=== PATIENT | male | born 1960 | race African-American/Black ===

== ENCOUNTER 2021-03-13 15:52 | Inpatient (IN) | payer OTHER ==
[2021-03-13 17:39] VITALS: BMI 21.6
[2021-03-13] MEDS ORDERED: cloNIDine HCL 0.1 MG TABLET PO PRN (18:01)
[2021-03-13] MEDS ORDERED: METHOCARBAMOL 500 MG TABLET PO PRN (18:01)
[2021-03-13] MEDS ORDERED: IBUPROFEN 400 MG TABLET (FP) PO PRN (18:01)
[2021-03-13] MEDS ORDERED: METHADONE HCL 10 MG TABLET (FOR DETOX USE ONLY) PO ONE (18:01)
[2021-03-13] MEDS ORDERED: BISMUTH SUBSALICYLATE 524 MG/30 ML PO PRN (18:01)
[2021-03-13] MEDS ORDERED: MAGNESIUM CITRATE 300 ML BOTTLE PO PRN (18:01)
[2021-03-13] MEDS ORDERED: ONDANSETRON *ODT* 4 MG TABLET SL PRN (18:01)
[2021-03-13] MEDS ORDERED: MAGNESIUM HYDROX 2400MG/30ML ORAL SUSPENSION 30 ML CUP PO PRN (18:01)
[2021-03-13] MEDS ORDERED: NICOTINE POLACRILEX 2 MG GUM BUC PRN (18:01)
[2021-03-13] MEDS ORDERED: ACETAMINOPHEN 325 MG TABLET (FP) PO PRN (18:01)
[2021-03-13] MEDS ORDERED: MAG HYDROX/AL HYDROX/SIMETH 30 ML UNIT-DOSE CUP PO PRN (18:01)
[2021-03-13] MEDS ORDERED: MENTHOL/PHENOL 1 EACH UD MM PRN (18:01)
[2021-03-13] MEDS: THIAMINE HCL 100 MG TABLET (FP) PO SCH (23:02)
[2021-03-13] MEDS: MELATONIN 5 MG TABLETS PO SCH (23:02)
[2021-03-14] MEDS ORDERED: METHADONE HCL 10 MG TABLET (FOR DETOX USE ONLY) ONE (09:47)
[2021-03-14] MEDS ORDERED: METHADONE HCL 5 MG TABLET (FOR DETOX USE ONLY) ONE (09:47)
[2021-03-14 09:54] LABS: HEMATOCRIT 30.3 % (35.4-49); HEMOGLOBIN 10.1 GM/dL (11.7-16.9); MCH 31.6 pg (25.7-33.7); MCHC 33.2 g/dl (32.0-35.9); MEAN CELL VOLUME 94.9 fl (80-96); MEAN PLT VOLUME 8.6 fl (7.5-11.1); PLATELET COUNT 177 K/MM3 (134-434); RBC 3.19 M/mm3 (4.00-5.60); RDW 14.1 % (11.9-15.9); WHITE BLOOD COUNT 9.4 K/mm3 (4.0-10.0)
[2021-03-14] MEDS ORDERED: METHADONE (DETOX) 20 MG, METHADONE (DETOX) 5 MG PO ONE (10:00)
[2021-03-14 10:03] LABS: CALCIUM 9.3 mg/dL (8.5-10.1)
[2021-03-14 10:04] LABS: ALBUMIN 2.4 g/dl (3.4-5.0); BLOOD UREA NITROGEN 12.7 mg/dL (7-18)
[2021-03-14 10:06] LABS: CREATININE 0.9 mg/dL (0.55-1.3)
[2021-03-14 10:08] LABS: BILIRUBIN,TOTAL 0.4 mg/dL (0.2-1); TOT PROT 6.8 g/dl (6.4-8.2)
[2021-03-14] MEDS: NICOTINE 14 MG/24 HOURS TOPICAL PATCH TD SCH (10:10)
[2021-03-14] MEDS: PRENATAL VITAMINS W/ FOLIC ACID TABLET (FP) PO SCH (10:10)
[2021-03-14] MEDS ORDERED: APIXABAN 5 MG TABLET PO SCH (11:30)
[2021-03-14] MEDS: APIXABAN 5 MG TABLET PO SCH ×2 (14:52→22:28)
[2021-03-14] MEDS: ACETAMINOPHEN 325 MG TABLET (FP) PO PRN (14:56)
[2021-03-14] MEDS: THIAMINE HCL 100 MG TABLET (FP) PO SCH (22:26)
[2021-03-14] MEDS: MELATONIN 5 MG TABLETS PO SCH (22:26)
[2021-03-14] MEDS: QUEtiapine FUMARATE 100 MG TABLET (FP) PO SCH (22:28)
[2021-03-15] MEDS ORDERED: ALBUTEROL SO4 2.5/IPRATROPIUM 0.5 INH SOL 3 ML VIAL.NEB. NEB PRN (09:52)
[2021-03-15] MEDS ORDERED: SODIUM CHLORIDE NASAL SPRAY 44 ML BOTTLE NS PRN (09:53)
[2021-03-15] MEDS ORDERED: P-EPHED 60MG/TRIPROLIDI 2.5MG TABLET PO PRN (09:53)
[2021-03-15] MEDS: APIXABAN 5 MG TABLET PO SCH ×2 (09:59→22:17)
[2021-03-15] MEDS: PRENATAL VITAMINS W/ FOLIC ACID TABLET (FP) PO SCH (09:59)
[2021-03-15] MEDS ORDERED: METHADONE HCL 10 MG TABLET (FOR DETOX USE ONLY) PO ONE (10:00)
[2021-03-15] MEDS ORDERED: ALBUTEROL SO4 2.5/IPRATROPIUM 0.5 INH SOL 3 ML VIAL.NEB. NEB ONE (10:00)
[2021-03-15] MEDS: NICOTINE 14 MG/24 HOURS TOPICAL PATCH TD SCH (10:02)
[2021-03-15] MEDS: guaiFENesin 600 MG TABLET.ER (FP) PO SCH ×2 (12:50→22:17)
[2021-03-15] MEDS: METHYL SALICYLATE/MENTHOL OINT 30 GM TUBE TP SCH ×2 (12:50→22:17)
[2021-03-15] MEDS: MELATONIN 5 MG TABLETS PO SCH (22:16)
[2021-03-15] MEDS: QUEtiapine FUMARATE 100 MG TABLET (FP) PO SCH (22:17)
[2021-03-15] MEDS: THIAMINE HCL 100 MG TABLET (FP) PO SCH (22:17)
[2021-03-16] MEDS ORDERED: METHADONE HCL 10 MG TABLET (FOR DETOX USE ONLY) ONE (09:22)
[2021-03-16] MEDS ORDERED: METHADONE HCL 5 MG TABLET (FOR DETOX USE ONLY) ONE (09:22)
[2021-03-16] MEDS ORDERED: METHADONE (DETOX) 10 MG, METHADONE (DETOX) 5 MG PO ONE (10:00)
[2021-03-16] MEDS: guaiFENesin 600 MG TABLET.ER (FP) PO SCH ×2 (10:46→22:48)
[2021-03-16] MEDS: METHYL SALICYLATE/MENTHOL OINT 30 GM TUBE TP SCH ×2 (10:46→22:48)
[2021-03-16] MEDS: APIXABAN 5 MG TABLET PO SCH ×2 (10:46→22:48)
[2021-03-16] MEDS: PRENATAL VITAMINS W/ FOLIC ACID TABLET (FP) PO SCH (10:46)
[2021-03-16] MEDS: NICOTINE 14 MG/24 HOURS TOPICAL PATCH TD SCH (10:50)
[2021-03-16] MEDS: QUEtiapine FUMARATE 100 MG TABLET (FP) PO SCH (22:48)
[2021-03-16] MEDS: MELATONIN 5 MG TABLETS PO SCH (22:48)
[2021-03-16] MEDS: THIAMINE HCL 100 MG TABLET (FP) PO SCH (22:48)
[2021-03-17] MEDS ORDERED: METHADONE HCL 10 MG TABLET (FOR DETOX USE ONLY) PO ONE (10:00)
[2021-03-17] MEDS: NICOTINE 14 MG/24 HOURS TOPICAL PATCH TD SCH (10:07)
[2021-03-17] MEDS: APIXABAN 5 MG TABLET PO SCH ×2 (10:07→21:35)
[2021-03-17] MEDS: PRENATAL VITAMINS W/ FOLIC ACID TABLET (FP) PO SCH (10:07)
[2021-03-17] MEDS: METHYL SALICYLATE/MENTHOL OINT 30 GM TUBE TP SCH ×2 (10:07→21:35)
[2021-03-17] MEDS: guaiFENesin 600 MG TABLET.ER (FP) PO SCH ×2 (10:07→21:35)
[2021-03-17] MEDS: LIDOCAINE 5% TOPICAL PATCH TP SCH (11:53)
[2021-03-17] MEDS: QUEtiapine FUMARATE 100 MG TABLET (FP) PO SCH (21:35)
[2021-03-17] MEDS: MELATONIN 5 MG TABLETS PO SCH (21:35)
[2021-03-17] MEDS: THIAMINE HCL 100 MG TABLET (FP) PO SCH (21:36)
[2021-03-17] MEDS ORDERED: LIDOCAINE PATCH REMOVAL MC SCH (22:00)
[2021-03-18] MEDS ORDERED: METHADONE HCL 5 MG TABLET (FOR DETOX USE ONLY) PO ONE (06:00)
[2021-03-18 09:29] VITALS: BP 109/59; PULSE 92; TEMP 96.9
[2021-03-18] MEDS: ACETAMINOPHEN 325 MG TABLET (FP) PO PRN (09:30)
[2021-03-18] MEDS: LIDOCAINE 5% TOPICAL PATCH TP SCH (10:48)
[2021-03-18] MEDS: METHYL SALICYLATE/MENTHOL OINT 30 GM TUBE TP SCH (10:48)
[2021-03-18] MEDS: APIXABAN 5 MG TABLET PO SCH (10:48)
[2021-03-18] MEDS: NICOTINE 14 MG/24 HOURS TOPICAL PATCH TD SCH (10:49)
[2021-03-18] MEDS: PRENATAL VITAMINS W/ FOLIC ACID TABLET (FP) PO SCH (10:49)
[2021-03-18] MEDS: guaiFENesin 600 MG TABLET.ER (FP) PO SCH (10:49)
== END 2021-03-18 09:51 | disposition home or self-care (01) | DRG 773 ==
LOC: YASAS 15:52 → Y3N 18:29
PROVIDERS: ADMIT Allergy & Immunology; ATTEND Allergy & Immunology
PROC: HZ2ZZZZ Detoxification Services for Substance Abuse Treatment (ICD-10-PCS; principal; 2021-03-13)
DX: F11.23 Opioid dependence with withdrawal (principal); F14.20 Cocaine dependence, uncomplicated; F12.20 Cannabis dependence, uncomplicated; F17.210 Nicotine dependence, cigarettes, uncomplicated; F19.282 Other psychoactive substance dependence with psychoactive substance-induced sleep disorder; F19.24 Other psychoactive substance dependence with psychoactive substance-induced mood disorder; F32.9 Major depressive disorder, single episode, unspecified; F41.9 Anxiety disorder, unspecified; F60.2 Antisocial personality disorder; I10 Essential (primary) hypertension; J45.20 Mild intermittent asthma, uncomplicated; R76.11 Nonspecific reaction to tuberculin skin test without active tuberculosis; M25.561 Pain in right knee; Z86.718 Personal history of other venous thrombosis and embolism; Z79.01 Long term (current) use of anticoagulants; Z99.89 Dependence on other enabling machines and devices
CPT/HCPCS: 36415; 71046-TC-FY; 80053; 85027; 86780; 93005; 93010; 94640; C9803; U0003; U0005